=== PATIENT | female | born 1960 | race American Indian/Alaskan Native ===

== ENCOUNTER 2020-08-19 09:55 | Outpatient (CLI) | payer OTHER ==
--- NOTE | 2020-08-19 10:39 | XRay Report ---
RIGHT HIP 3 VIEWS INDICATION: RIGHT HIP PAIN. COMPARISON: None. IMPRESSION: No acute osseous or soft tissue abnormality. Mild to moderate osteoarthritic changes are noted at the right hip. No osteonecrosis. Signer Name: Lenard Askew Jr, MD Signed: 08/19/2020 10:35 AM Workstation Name: [id number]
== END 2020-08-19 09:56 | disposition home or self-care (01) ==
LOC: XRAY 09:55
PROVIDERS: ATTEND Internal Medicine
DX: M16.11 Unilateral primary osteoarthritis, right hip (principal)